=== PATIENT | male | born 1985 | race Caucasian/White ===

== ENCOUNTER 2017-05-26 14:40 | Emergency (ER) | payer BC ==
[~2017-05-26] VITALS: Wt 70.3 kg
[~2017-05-26 14:40] MED LIST: MOTRIN800 MG PO; VICODIN 500 MG-1 TAB PO
[2017-05-26] MEDS ORDERED: PENICILLIN VK500 MG PO (14:56)
[2017-05-26] MEDS ORDERED: Peridex 473 ML473 ML PO (14:56)
[2017-05-26] MEDS ORDERED: NAPROSYN500 MG PO (14:56)
== END 2017-05-26 15:04 | disposition home or self-care (01) ==
LOC: ED 14:40
DX: K04.7 Periapical abscess without sinus (principal); R03.0 Elevated blood-pressure reading, without diagnosis of hypertension; F17.200 Nicotine dependence, unspecified, uncomplicated

== ENCOUNTER 2018-11-09 18:01 | Emergency (ER) | payer SELFPAY ==
[~2018-11-09] VITALS: Ht 172.7 cm; Wt 79.4 kg
[~2018-11-09 18:01] MED LIST changes: +NAPROSYN500 MG PO; +PENICILLIN VK500 MG PO; +Peridex 473 ML473 ML PO
[2018-11-09] MEDS ORDERED: NAPROSYN500 MG PO (18:09)
[2018-11-09] MEDS ORDERED: Peridex 473 ML473 ML PO (18:09)
[2018-11-09] MEDS ORDERED: AUGMENTIN 875875 MG PO (18:09)
[2018-11-09] MEDS ORDERED: ZOFRAN4 MG PO (18:09)
[2018-11-09] MEDS ORDERED: CLINDAMYCIN HC300 MG PO (18:14)
== END 2018-11-09 18:36 | disposition home or self-care (01) ==
LOC: ED 18:01
DX: K04.7 Periapical abscess without sinus (principal); R03.0 Elevated blood-pressure reading, without diagnosis of hypertension; Z79.2 Long term (current) use of antibiotics

== ENCOUNTER 2019-03-21 21:02 | Inpatient (IN) | payer SELFPAY ==
[~2019-03-21] VITALS: Ht 172.7 cm; Wt 74.8 kg
--- NOTE | ~2019-03-21 | EKG ---
[place], [place] ELECTROCARDIOGRAM REPORT NAME: ROSALINE BRAND UNIT #: [id number] ROOM: 531 DOCTOR: JERRY DRAFT REPORT BIRTHDATE: [birth year] [facility] Test Date: 2019-03-22 Test Time: 00:28:03 Pat Name: ROSALINE BRAND Department: Room: 531 Gender: M Packaging Assembler: : 1985 Requested By: ILEANA NOLASCO Order Number: [id number] Reading MD: Sathya Gloria Measurements Intervals [place] Rate: 51 P: 77 OR: 165 QRS: 83 QRSD: 88 T: 68 QT: 448 QTc: 413 Interpretive Statements Sinus rhythm Electronically Signed On 03-22-2019 8:45:22 PDT by Sathya Gloria CM:EKGRPT:ELECTROCARDIOGRAM REPORT [id number] ILEANA EDWARDS DRAFT REPORT ILEANA NOLASCO
--- NOTE | ~2019-03-21 | O ---
[place], [place] OPERATIVE NOTE NAME: ROSALINE BRAND [facility] CLINICT #: [id number] UNIT #: [id number] ROOM: 531 DOCTOR: ASIM ARMAS MD BIRTHDATE: [birth year] DOS: 03/22/2019 PREOPERATIVE DIAGNOSES: Acute calculus cholecystitis and right upper quadrant pain. POSTOPERATIVE DIAGNOSES: Acute calculus cholecystitis and right upper quadrant pain. PROCEDURE: Laparoscopic cholecystectomy with intraoperative cholangiogram. SURGEON: Asim Armas M.D. ANESTHESIA: General endotracheal and Marcaine 0.5% x 12 mL. ESTIMATED BLOOD LOSS: Less than 25 mL. COMPLICATIONS: None. DESCRIPTION OF PROCEDURE: The patient was brought to the operating suite and placed on table in supine position. Adequate level of conscious sedation was obtained by the anesthesia staff. Endotracheal anesthesia was induced and endotracheal tube was placed and secured. Abdomen was prepped and draped in the usual sterile fashion. Field block was placed above the umbilicus in usual fashion with 0.5% Marcaine without epinephrine. A small transverse incision was made and carried through the subcutaneous fat to the fascia of the anterior abdominal wall. This was elevated between towel clips and a Veress needle, was inserted in usual fashion. A Veress needle was passed and pneumoperitoneum established with appropriate volume and filling pressure with carbon dioxide gas. The abdomen was then cannulated with a 5-mm bladeless XL trocar with a 30-degree laparoscope within. Laparoscopy ensued and showed the patient to have adhesions and edema around the gallbladder consistent with acute cholecystitis. Trocar sites were then placed under local anesthesia in the usual fashion in the subxiphoid and right flank lesion areas, all 5 mm ports. Gallbladder was elevated and liver retracted laterally. The triangle of Calot was then skeletonized with careful dissection using a [place] dissector, isolating the cystic duct and artery without difficulty. This was difficult due to the patient's extremely long gallbladder and relatively short trunk from his body habitus with a fairly protracted dissection, the triangle of Calot was skeletonized and the cystic duct and artery isolated, visualizing the critical angle between the liver edge and the cystic duct. Cholangiography was performed and the patient was seen to have multiple large stones and cystic duct obstruction. The large stone in the neck of the gallbladder was finally manipulated with graspers and disimpacted and then cholangiography showed a fairly long tiny cystic duct with appropriate appearance and drainage into the common bile duct and into the duodenum with flow of contrast and no filling defects. A very minimal portion of the common bile duct proximal to the cystic duct origin was seen at the end of this very long cystic duct. Despite the fact that the proximal common duct could not be well visualized, it was felt adequate as the cystic duct was to be transected right next to the gallbladder, a far distance away from any point of complication. This was then transected in [place], [place] OPERATIVE NOTE NAME: ROSALINE BRAND UNIT #: [id number] ROOM: 531 DOCTOR: ASIM ARMSA MD BIRTHDATE: [birth year] similar fashion, the artery isolated and transected with approximated skin clips. The gallbladder was then skeletonized from the liver bed, which was again a fairly protracted effort due to the patient's body habitus and extremely long gallbladder. This was accomplished and once done, it was placed in an Endopouch specimen bag and removed through the umbilicus, changing out the umbilical trocar to a 12 mm port to accomplish this. This was then removed in the EndoCatch bag and opened on +the field showing the gallbladder was 17 cm in greatest length with multiple large stones and fragments of stones on opening the specimen. This was handed off for pathology to examine for microscopic confirmation; it is roughly a little more than twice the size of the normal gallbladder. The pneumoperitoneum was then reestablished and the area inspected for hemostasis. With good hemostasis, the abdomen was irrigated and suctioned dry. With no further pathology, pneumoperitoneum was released and the trocars were removed. The umbilical incision was closed with [id number] suture of 2-0 PDS and then this incision and other 3 trocar sites closed with 5-0 Monocryl and DermaMax skin adhesive. The patient tolerated the procedure well. He was allowed to awaken in the room and was extubated without difficulty. All sponge, needle and instrument counts were correct at the end of the procedure. He received antibiotic prophylaxis preoperatively and had compression devices to the lower extremities for DVT prophylaxis. ASIM ARMAS MD CM:OPRECORD:OPERATIVE NOTE [id number] ASIM ARMAS MD 04/16/19 1327 interface
[~2019-03-21 21:02] MED LIST changes: +AUGMENTIN 875875 MG PO; +CLINDAMYCIN HC300 MG PO; +ZOFRAN4 MG PO
[2019-03-21 21:03] VITALS: BP 139/77
[2019-03-21 21:42] LABS: HEMATOCRIT 44.2 % (42.0-52.0); HEMOGLOBIN 14.9 g/dl (14.0-18.0); MEAN CELL VOLUME 98.9 fl (80.0-94.0); MEAN CORPUSCULAR HGB 33.3 pg (27.0-31.0); MEAN CORPUSCULAR HGB CONC 33.7 g/dl (33.0-37.0); MEAN PLATELET VOLUME 10.2 fl (9.6-12.3); PLATELET COUNT AUTOMATED 305 10*3/uL (130-400); RED BLOOD COUNT 4.47 10*6/uL (4.50-5.90); RED CELL DISTRI WIDTH 13.1 % (0-14.5); WHITE BLOOD COUNT 22.1 10*3/uL (4.8-10.8)
[2019-03-21 21:59] LABS: ALBUMIN 4.8 gm/dl (3.1-4.5); ALKALINE PHOSPHATASE 85 U/L (45-117); BUN 8 mg/dl (7-24); CHLORIDE 106 mmol/L (98-107); CREATININE 0.86 mg/dL (0.70-1.30); LIPASE 84 U/L (73-393); POTASSIUM 3.4 mmol/L (3.5-5.1); SGOT/AST 14 IU/L (3-35); SGPT/ALT 27 U/L (12-78); SODIUM 141 mmol/L (136-145)
[2019-03-21 22:01] LABS: ATYPICAL LYMPHS 1 % (0-0); PLATELET SUFFICIENCY NORMAL (NORMAL); TOTAL CELLS COUNTED 100 #CELLS
[2019-03-21 22:56] VITALS: BP 121/63
[2019-03-22] VITALS (20 sets, daily range): BP systolic 108–137; BP diastolic 46–83
[2019-03-22 06:32] LABS: MEAN CELL VOLUME 99.7 fl (80.0-94.0); MEAN CORPUSCULAR HGB 33.2 pg (27.0-31.0); MEAN CORPUSCULAR HGB CONC 33.2 g/dl (33.0-37.0); MEAN PLATELET VOLUME 10.7 fl (9.6-12.3); PLATELET COUNT AUTOMATED 236 10*3/uL (130-400); RED CELL DISTRI WIDTH 13.4 % (0-14.5); WHITE BLOOD COUNT 20.6 10*3/uL (4.8-10.8)
[2019-03-22 06:37] LABS: HEMATOCRIT 37.9 % (42.0-52.0); HEMOGLOBIN 12.6 g/dl (14.0-18.0)
[2019-03-22 06:38] LABS: BUN 10 mg/dl (7-24); CHLORIDE 111 mmol/L (98-107); CHOLESTEROL 104 mg/dL (<200); CREATININE 0.69 mg/dL (0.70-1.30); FREE T4 1.14 ng/dl (0.76-1.46); HDL CHOLESTEROL 36 mg/dl (40-60); LDL CHOLESTEROL 54 mg/dL (9-159); PHOSPHOROUS 3.2 mg/dL (2.5-4.9); SODIUM 142 mmol/L (136-145); TRIGLYCERIDES 69 mg/dl (<150); VLDL CHOLESTEROL 14 mg/dL (6-40)
[2019-03-22 06:45] LABS: THYROID STIM HORMONE (HS) 0.088 uIU/ml (0.358-4.75)
[2019-03-22 07:38] LABS: ATYPICAL LYMPHS 1 % (0-0); PLATELET SUFFICIENCY NORMAL (NORMAL); TOTAL CELLS COUNTED 100 #CELLS
[2019-03-22 08:58] LABS: BILIRUBIN NEGATIVE (NEGATIVE); BLOOD NEGATIVE (NEGATIVE); CLARITY SL CLOUDY (CLEAR); COLOR YELLOW (YELLOW); GLUCOSE NEGATIVE (NEGATIVE); KETONE 1+ (NEGATIVE); LEUKO ESTERASE NEGATIVE (NEGATIVE); NITRITE NEGATIVE (NEGATIVE); PH 6.5 (5.0-9.0); UROBILINOGEN 0.2 E.U./dl (0.2-1.0)
[2019-03-22 09:17] LABS: VITAMIN D, 25-HYDROXY 24.8 ng/mL (30-100)
[2019-03-22 09:39] LABS: BACTERIA 1+; CALCIUM OXALATE CRYSTALS TRACE; MUCOUS 2+
[2019-03-23] VITALS: BP 129/70
[2019-03-23 08:00] VITALS: BP 118/80
[2019-03-23] MEDS ORDERED: HYDROCODONE-AC1 EAC1 PO (10:02)
== END 2019-03-23 11:52 | disposition home or self-care (01) | DRG 854 ==
LOC: ED 21:02 → 5E 03-22 00:12 → EDHOLD 03-22 00:12 → 5E 03-22 09:04
PROVIDERS: Emergency Medicine; Family Medicine; Nurse Practitioner Family; ADMIT Internal Medicine
PROC: 0FT44ZZ Resection of Gallbladder, Percutaneous Endoscopic Approach (ICD-10-PCS; principal; 2019-03-22)
PROC: BF131ZZ Fluoroscopy of Gallbladder and Bile Ducts using Low Osmolar Contrast (ICD-10-PCS; principal; 2019-03-22)
DX: A41.9 Sepsis, unspecified organism (principal); K80.01 Calculus of gallbladder with acute cholecystitis with obstruction; R00.1 Bradycardia, unspecified; R03.0 Elevated blood-pressure reading, without diagnosis of hypertension; R73.9 Hyperglycemia, unspecified; D75.89 Other specified diseases of blood and blood-forming organs; F17.210 Nicotine dependence, cigarettes, uncomplicated; E87.6 Hypokalemia; E88.09 Other disorders of plasma-protein metabolism, not elsewhere classified; Z71.6 Tobacco abuse counseling

== ENCOUNTER 2019-04-15 08:40 | Emergency (ER) | payer BC ==
[~2019-04-15] VITALS: Ht 172.7 cm; Wt 66.7 kg
[~2019-04-15 08:40] MED LIST changes: +HYDROCODONE-AC1 EAC1 PO
[2019-04-15] MEDS ORDERED: DOXYCYCLINE100 M3 PO (09:29)
[2019-04-15] MEDS ORDERED: Motrin,Rufen800 MG PO (09:29)
== END 2019-04-15 09:41 | disposition home or self-care (01) ==
LOC: ED 08:40
DX: T81.40XA Infection following a procedure, unspecified, initial encounter (principal); J20.9 Acute bronchitis, unspecified; R51 Headache; H53.8 Other visual disturbances; F17.210 Nicotine dependence, cigarettes, uncomplicated; Z90.49 Acquired absence of other specified parts of digestive tract; Z90.89 Acquired absence of other organs; Y83.8 Other surgical procedures as the cause of abnormal reaction of the patient, or of later complication, without mention of misadventure at the time of the procedure; Y92.89 Other specified places as the place of occurrence of the external cause

== ENCOUNTER 2020-10-20 18:59 | Emergency (ER) | payer SELFPAY ==
[~2020-10-20] VITALS: Ht 172.7 cm; Wt 74.8 kg
[~2020-10-20 18:59] MED LIST changes: +DOXYCYCLINE100 M3 PO; +Motrin,Rufen800 MG PO
[2020-10-20] MEDS ORDERED: SEPTDS PO (19:19)
== END 2020-10-20 19:24 | disposition home or self-care (01) ==
LOC: ED 18:59
DX: L03.317 Cellulitis of buttock (principal)